=== PATIENT | male | born 1995 | race Asian ===

== ENCOUNTER 2022-09-27 13:18 | Outpatient (RCR) | payer BC, SELFPAY ==
[2022-07-23 13:02] LABS: Cholesterol 168 mg/dL (0-200); GGT 31 U/L (15-85); HDL Direct 38 mg/dL (40-60); LDL Cholesterol Calculated 111 mg/dL (<130); Triglycerides 97 mg/dL (0-150)
[2022-08-28 13:02] LABS: Cholesterol 176 mg/dL (0-200); GGT 31 U/L (15-85); HDL Direct 38 mg/dL (40-60); LDL Cholesterol Calculated 120 mg/dL (<130); Triglycerides 90 mg/dL (0-150)
[2022-09-27 14:02] LABS: Cholesterol 186 mg/dL (0-200); GGT 33 U/L (15-85); HDL Direct 44 mg/dL (40-60); LDL Cholesterol Calculated 131 mg/dL (<130); Triglycerides 55 mg/dL (0-150)
== END 2022-10-21 23:59 | disposition home or self-care (01) ==
LOC: CHSLAB 13:18
DX: L70.0 Acne vulgaris (principal)
CPT/HCPCS: 36415; 80061; 82977

== ENCOUNTER 2022-10-30 13:07 | Outpatient (RCR) | payer BC, SELFPAY ==
[2022-10-30 14:04] LABS: Cholesterol 188 mg/dL (0-200); GGT 49 U/L (15-85); HDL Direct 37 mg/dL (40-60); LDL Cholesterol Calculated 134 mg/dL (<130); Triglycerides 87 mg/dL (0-150)
== END 2023-01-28 23:59 | disposition home or self-care (01) ==
LOC: CHSLAB 13:07
DX: L70.0 Acne vulgaris (principal)
CPT/HCPCS: 36415; 80061; 82977